=== PATIENT | female | born 1980 | race American Indian/Alaskan Native ===

== ENCOUNTER 2017-08-21 08:33 | Emergency (ER) | payer BC ==
[2017-08-21] MEDS ORDERED: TYLENOL PO ONE (09:51)
--- NOTE | 2017-08-21 09:51 | Emergency Department Report ---
ED General Adult HPI - General Chief complaint: Headache Stated complaint: HEADACHE SINCE WEDNESDAY DIZZY Time Seen by Provider: 08/21/17 09:39 Source: patient Mode of arrival: Ambulatory Limitations: No Limitations - History of Present Illness Initial comments: Patient with history of a headache a month ago. hx of previous hayes that was worse she is here for 2 things she was arrested over the weekend a PPD on her her boss wants her checked in the ED , never had it read, had 2 placed at [facility], . She says that the first one was flat and never had any problems however norman second one on her this one did get a little bit raised and red but not greater than several millimeters. She is here for evaluation of a 3 mm reaction to PPD placed a week ago she did not get seen at 24,48 or 72 hours she is a week out from this. With a headache. the headache is better now and was nonexertional was not sudden in onset was gradual she says she was sleeping when it started with history of worse headaches in the past she denies any focal neural complaints no stiff neck no fever no nausea vomiting no numbness tingling or weakness or visualcomplaints ,she is wanting clearance to go back to work with this slightly raised PPD that is a week old and treatment for a headache [place] she was dizzy but she states no black or bloody stool no heavy menstrual bleeding, had a negative test week ago to senior living consents to an x-ray without repeat test -: Gradual, unknown Location: head Radiation: non-radiation Severity scale (0 -10): 0 Improves with: none Worsens with: none Associated Symptoms: denies other symptoms, headaches. denies: confusion, chest pain, cough, diaphoresis, fever/chills, loss of appetite, malaise, nausea/ vomiting, rash, seizure, shortness of breath, syncope, weakness - Related Data Allergies Allergy/AdvReac Type Severity Reaction Status Date / Time No Known Allergies Allergy Unverified 08/21/17 08:51 ED Review of Systems ROS: Stated complaint: HEADACHE SINCE WEDNESDAY DIZZY Other details as noted in HPI Comment: All other systems reviewed and negative Constitutional: denies: diaphoresis, fever, malaise Eyes: denies: eye discharge, vision change ENT: denies: dental pain, hearing loss, epistaxis Respiratory: denies: shortness of breath, SOB with exertion, SOB at rest, stridor Cardiovascular: denies: chest pain, palpitations, dyspnea on exertion Endocrine: denies: excessive sweating Gastrointestinal: denies: diarrhea, constipation, hematemesis, melena, hematochezia Skin: denies: change in color, change in hair/nails, pruritus Neurological: denies: numbness, paresthesias, confusion Other: No weight loss no fever no recent travel ED Past Medical Hx - Past Medical History Previous Medical History?: No - Surgical History Past Surgical History?: No - Social History Smoking Status: Never Smoker Substance Use Type: None ED Physical Exam - General Limitations: No Limitations General appearance: alert, in no apparent distress - Head Head exam: Present: atraumatic, normocephalic - Eye Eye exam: Present: PERRL, EOMI - ENT ENT exam: Present: normal exam, normal orophraynx - Neck Neck exam: Present: normal inspection. Absent: tenderness, meningismus - Respiratory Respiratory exam: Present: normal lung sounds bilaterally. Absent: respiratory distress, wheezes, rales, rhonchi, stridor, chest wall tenderness, accessory muscle use, decreased breath sounds, prolonged expiratory - Cardiovascular Cardiovascular Exam: Present: regular rate, normal rhythm. Absent: bradycardia , tachycardia, irregular rhythm, normal heart sounds, systolic murmur, diastolic murmur, rubs, gallop - GI/Abdominal GI/Abdominal exam: Present: soft. Absent: distended, tenderness, guarding, rebound, rigid, mass, pulsatile mass - Extremities Exam Extremities exam: Present: normal inspection, full ROM, normal capillary refill. Absent: tenderness, pedal edema, joint swelling - Back Exam Back exam: Present: normal inspection. Absent: CVA tenderness (L), muscle spasm , paraspinal tenderness, vertebral tenderness - Neurological Exam Neurological exam: Present: alert, oriented X3, CN II-XII intact. Absent: motor sensory deficit - Psychiatric Psychiatric exam: Present: normal affect, anxious ED Course Vital Signs 08/21/17 08/21/17 08:51 09:58 Temperature 98.2 F Pulse Rate 114 H Respiratory 18 18 Rate Blood Pressure 111/72 O2 Sat by Pulse 100 Oximetry ED Medical Decision Making - Radiology Data Radiology results: report reviewed - Medical Decision Making PpT is likely negative she do not have a significant reaction to it she is cleared to return to work with a negative chest x-ray, she also was having a mild headache, this does not appear to be an acute emergent headache that would require imaging at this time she had a nonfocal exam is not a positional headache is not worsening over time, there is no nausea vomiting there is no papilledema on exam, neuro exam is nonfocal it was not sudden in onset, history would not support any type of catastrophic bleed or hemorrhage at this time, history does not support brain tumor, or any other mass lesion that would require acute emergent imaging, she is referred to outpatient follow-up for further evaluation of headaches they are improved in the ED with Tylenol as reviewed she noted no signs of elevated ICP at this time, no signs of focal process R neuro exam, no history or signs of what suggest any other emergent headache at this time no stiff neck no fever no rash she she is stable for outpatient follow-up verbalized need for outpatient follow-up for further evaluation of headaches however she was sure to return immediately if nor alarming headache Critical care attestation.: If time is entered above; I have spent that time in minutes in the direct care of this critically ill patient, excluding procedure time. ED Disposition Clinical Impression: Headache, Negative PPD (purified protein derivative) Disposition: DC- TO HOME OR SELFCARE Is pt being admited?: No Condition: Stable Instructions: Acute Headache (ED) Additional Instructions: Repeat his negative chest x-ray is negative urine cleared to return to work, he will need outpatient follow-up with Dr. cramer. Family doctor for further evaluation of headaches please return immediately to the ER if new or alarming symptoms worse or persistent symptoms or call [phone] Referrals: ARELIS CASTILLO MD [Primary Care Provider] - 3-5 Days TAMEKA BYRD MD [Staff Physician] - 3-5 Days Time of Disposition: 11:05
--- NOTE | 2017-08-21 10:53 | XRay Report ---
FINAL REPORT EXAM: XR CHEST ROUTINE 2V HISTORY: wheezes TECHNIQUE: Frontal and lateral views of the chest. PRIORS: None currently available. FINDINGS: Cardiac silhouette is within normal limits. There is no effusion. There is no pneumothorax. There is no consolidation. There are no suspicious osseous lesions. IMPRESSION: No acute cardiopulmonary findings.
[2017-08-21 11:27] VITALS: BP 128/68
== END 2017-08-21 11:26 | disposition home or self-care (01) ==
LOC: ED 08:33
DX: R51 Headache (principal); R42 Dizziness and giddiness
CPT/HCPCS: 71046